=== PATIENT | female | born 2000 | race Hispanic/Latino ===

== ENCOUNTER 2021-07-29 22:48 | Emergency (ER) | payer OTHER | END 2021-07-29 23:38 | disposition home or self-care (01) | LOC: ERS 22:48 | DX: L02.01 Cutaneous abscess of face (principal) | CPT/HCPCS: 99282 ==

== ENCOUNTER 2021-07-31 21:24 | Emergency (ER) | payer OTHER | END 2021-08-01 00:02 | disposition home or self-care (01) | LOC: ERS 21:24 | DX: L02.01 Cutaneous abscess of face (principal) | CPT/HCPCS: 99282 ==

== ENCOUNTER 2022-05-10 11:44 | Emergency (ER) | payer OTHER ==
[2022-05-10 12:44] LABS: #Eosinphils 0.4 thou/uL (0.0-0.7); #Lymphocytes 2.2 thou/uL (1.20-3.40); #Monocytes 0.3 thou/uL (0.11-0.59); #Neutrophils 4.3 thou/uL (1.40-6.50); %Basophils 0.2 % (0.0-1.0); %Eosinophils 5.5 % (0.0-10.0); %Lymphocytes 30.5 % (21.0-51.0); %Monocytes 3.6 % (0.0-10.0); %Neutrophils 60.3 % (42.0-75.0); Hemoglobin 12.8 g/dL (12.0-16.0); Mean Corpuscular HGB CONC 33.8 g/dL (32.0-36.0); Mean Platelet Volume 7.5 fL (7.4-10.4); Platelet Count 294 10x3/uL (130-400); RBC Distribution Width 12.5 % (11.5-14.5); Red Blood Cell (RBC) Count 4.39 mill/uL (4.20-5.40); White Blood Cell (WBC) Count 7.1 10x3/uL (4.8-10.8)
[2022-05-10 12:56] LABS: BHCG - Serum Negative (NEGATIVE); Pregs Control Background? CLEAR/WHITE (CLR/WHITE); Pregs Control Bar Appear? YES (CONTROL BAR)
[2022-05-10 13:13] LABS: ALT (SGPT) 27 U/L (8-55); AST (SGOT) 14 U/L (5-34); Albumin 4.1 g/dL (3.5-5.0); Alkaline Phosphatase 54 U/L (40-110); Anion Gap 14 mmol/L (10-20); BUN (Urea Nitrogen) 10 mg/dL (7.0-18.7); Bilirubin, Total 0.3 mg/dL (0.2-1.2); Calc. Creatinine Clearance 0 mL/min (70-130); Calcium 9.4 mg/dL (7.8-10.44); Carbon Dioxide 23 mmol/L (22-29); Chloride 104 mmol/L (98-107); Estimated GFR 128; Globulin 3.8 g/dL (2.4-3.5); Glucose 149 mg/dL (70-105); Potassium 3.7 mmol/L (3.5-5.1); Protein, Total 7.9 g/dL (6.0-8.3); Sodium 137 mmol/L (136-145)
== END 2022-05-10 16:30 | disposition home or self-care (01) ==
LOC: ERS 11:44
DX: L03.211 Cellulitis of face (principal); Z79.84 Long term (current) use of oral hypoglycemic drugs
CPT/HCPCS: 36415; 80053; 84703; 85025; 94760; 99283